=== PATIENT | female | born 1965 ===

== ENCOUNTER 2018-08-18 00:30 | Emergency (ER) | payer SELFPAY ==
[2018-08-18 00:37] VITALS: BP 152/102
== END 2018-08-18 02:49 | disposition left against medical advice (07) ==
LOC: ED 00:30
DX: I10 Essential (primary) hypertension (principal); Z53.21 Procedure and treatment not carried out due to patient leaving prior to being seen by health care provider

== ENCOUNTER 2018-08-18 11:56 | Emergency (ER) | payer SELFPAY ==
--- NOTE | 2018-08-18 12:23 | ED ---
HPI Diabetic - HPI Summary HPI Summary: Patient was first seen in sub waiting room at 12:11 when EKG and labs were initiated. This patient is a 53 year old F presenting to [facility] accompanied by daughter with a chief complaint of high blood sugar since the night of 08/17/18. Pt has no history of diabetes. When measured at home last night, her blood sugar level was 419. Pt came to [facility] last night but left without being seen after waiting 2 -3 hours. Pts sister is an ED doctor in [place], Dr. Bee Mccall, who strongly recommended pt come back to the ED after hearing her blood sugar levels. Pt reports she has generally been pretty healthy, but reports that she hasnt been feeling well since 08/15/18, which worsened on 08/17/18 and she was extremely exhausted, and could not get out of bed. That was when she checked her blood sugar levels, and she has been checking her blood sugar every 4 hours since then. The lowest reading she had was 307 and the last reading she had was 370. Her blood pressure was also varying. The lowest systolic was 98 and highest was about 150. Pt reports her tongue is numb, and left side of jaw is numb from this morning when she woke up and is still present, an intermittent cough for the past 3-4 days, nausea, DAS, normal consumption of water, and losing a lot of weight over the past 3-4 months (without trying to lose weight) . Pt reports she lost 20 lbs, daughter reports pt lost 50-60 lbs. Pt reports discomforts/pressure in chest described as sinking, and rates the pain 6-7/ 10. Pt denies fever, vomiting, abdominal pain, dysuria, hematuria, no pain in calf. This is the pt first experience of chest pressure, first high blood sugar , first high blood pressure. Pt has no FHx of diabetes, PR, both parents alive and well. Pt does not smoke or drink alcohol. Pt takes no medications at home. Pt has no primary care physician. Home Medications Medication Instructions Recorded Confirmed Type NK [No Home Medications Reported] 08/18/18 08/18/18 History - History Of Current Complaint Chief Complaint: EDDiabeticProb Hx Obtained From: Patient, Family/Station Jailer - daughter Last Known Well Date: 08/14/18 Onset/Duration: Gradual Onset, Lasting Days - 08/15/18, Still Present Timing: Constant Severity Initially: Severe Severity Currently: Severe Character: Lethargic Aggravating: Nothing, Other Alleviating: Nothing Associated Signs & Symptoms: Cough, Nausea, Weight Loss - generalized fatigue Related History: Other - no prior hx of DM - Allergies/Home Medications Allergies/Adverse Reactions: Allergies Allergy/AdvReac Type Severity Reaction Status Date / Time Penicillins Allergy Unknown Verified 08/18/18 12:04 Reaction Details Sulfa (Sulfonamide Allergy Unknown Verified 08/18/18 12:04 Antibiotics) Reaction Details PMH/Surg Hx/FS Hx/Imm Hx Previously Healthy: Yes Endocrine/Hematology History: Denies: Hx Diabetes Cardiovascular History: Denies: Hx Hypertension - Surgical History Surgical History: None Infectious Disease History: No Infectious Disease History: Denies: Traveled Outside the [place] in Last 30 Days - Family History Known Family History: Negative: Cardiac Disease, Diabetes - Social History Lives: With Family Alcohol Use: None Hx Substance Use: No Substance Use Type: Reports: None Hx Tobacco Use: No Smoking Status (MU): Never Smoked Tobacco Do You Chew or Dip Tobacco: No Have You Chewed or Dipped Tobacco in the LAST YEAR: No Have You Smoked in the Last Year: No Review of Systems Positive: Other - Pos - weight loss, unintended 20-50lbs . Negative: Fever Positive: Other - Pos - numb tongue, left side is jaw is numb Positive: Chest Pain Positive: Cough Positive: Nausea. Negative: Abdominal Pain, Vomiting Negative: dysuria, hematuria Positive: Other - Neg - pain in calf Skin: Negative Positive: Headache Psychological: Normal All Other Systems Reviewed And Are Negative: Yes Physical Exam - Summary Physical Exam Summary: Normal Physical Exam Appearance: Ill-appearing, no acute pain distress, well-nourished Skin: Warm, color reflects adequate perfusion, dry Head: Normal Head/Face inspection, atraumatic Eyes: Conjunctiva clear ENT: Normal inspection, oral mucosa moist, tongue and jaw with normal appearance Neck: Supple, no nodes, no JVD Respiratory: Lungs clear, normal breath sounds, no respiratory distress Cardio: RRR, No murmur, pulses normal, brisk capillary refill, Mild chest pain Abdomen: Soft, nontender Bowel sounds: Present Musculoskeletal: Strength Intact/ROM intact, no calf tenderness, no edema. Psychological: Normal Neuro: Alert, O x 3, CN II-XII intact, Motor 5/5, Sensation intact, normal gait , muscle tone normal, no focal deficit Triage Information Reviewed: Yes Vital Signs On Initial Exam: Initial Vitals Temp Pulse Resp BP Pulse Ox 98.1 F 87 18 139/98 98 08/18/18 11:59 08/18/18 11:59 08/18/18 11:59 08/18/18 11:59 08/18/18 11:59 Vital Signs Reviewed: Yes Diagnostics - Vital Signs Vital Signs Temp Pulse Resp BP Pulse Ox 08/18/18 11:59 98.1 F 87 18 139/98 98 - Laboratory Result Diagrams: 08/18/18 13:27 08/18/18 13:27 Lab Statement: Any lab studies that have been ordered have been reviewed, and results considered in the medical decision making process. - Radiology CXR Radiology Interpretation Completed By: Radiologist Summary of Radiographic Findings: CXR reveals, per radiologist, IMPRESSION: NO ACTIVE CARDIOPULMONARY DISEASE. ED physician has reviewed this radiology report. - EKG 1206 Cardiac Rate: NL - 76 bpm EKG Rhythm: Sinus Rhythm ST Segment: Non-Specific Ectopy: None EKG Comparison: Other - no prior to compare Summary of EKG Findings: An EKG at 1206 reveals nml sinus rhythm 76, AV/IV CT, nml QTc, and nml axis. No acute changes.No STEMI, no prior to compare. ED MD has reviewed and interpreted this EKG. Re-Evaluation - Re-Evaluation First Eval Re-Evaluation Time: 15:57 Comment: Vital signs while in room: HR 93 bpm, BP 112/79, O2 sat 100%. Pt c/o. palpitations on the recheck but on the monitor it shows sinus rythm 93. Discussed plan to discharge. Pt looks well, improved from admission to ED. Talked to pt's sister, ER doctor in [place] who agrees with evaluation and treatment plan for new onset DM. Sister did not realize pt had had chest pressure also, but agrees with DC after 2 negative troponins and low HEART score (2) and LOLI score (1-for DM). Pt denies chest pain or numbness of tongue and jaw at this time. Repeat glucose 1.5 hrs after regular insulin IV 10 units and 2L NS is 202. Pt feels well. Daughter and pt advised to call [facility] clinic to be seen on this Tuesday, August 21, 2018. Diabetic Course/Dx - Course Course Of Treatment: CXR reveals, per radiologist, IMPRESSION: NO ACTIVE CARDIOPULMONARY DISEASE. An EKG at 1206 reveals nml sinus rhythm 76, AV/IV CT, nml QTc, and nml axis. No acute changes.No STEMI, no prior to compare. Blood work obtained. The significant abnormalities include Glucose 389 at 1327 with blood draw, (POC Glucose is 346 at 12:54 at triage), POC glucose at 1426 is 381 , POC glucose at 1614 is 202 after 10 U reg insulin and 2L NS. Hemoglobin A1c is 14.3. Anion gap is 7, lactic acid is 1.0. Venous blood gas shows normal pH, 7.32. So pt is new onset DM type II, with no ketoacidosis. Pt had 2 troponins of zero, three hours apart, and a normal EKG with no prior to compare. CXR was no acute cardiopulmonary disease. Her HEART score is 2, and her LOLI score is 1. Pt is pain free and glucose is 202 by POC at time of discharge. Pt and her daughter and pt's ED MD sister are all agreeable to discharge. Pt will start metformin and have definite follow up with the [facility] clinic in 3 days. Daughter is given information about contacting the billing department and social and political studies professor at the hospital to help with insurance, as pt states she has no insurance. - Diagnoses Differential Dx: Acute PR, Diabetic Ketoacidosis, Hyperglycemia, Hyperosmolar State, New Onset Diabetes, Sepsis Provider Diagnoses: New onset type 2 diabetes mellitus, Chest pain, Unintended weight loss Discharge - Sign-Out/Discharge Documenting (check all that apply): Patient Departure - Discharge Patient Received Moderate/Deep Sedation with Procedure: No - Discharge Plan Condition: Stable Disposition: HOME Prescriptions: metFORMIN* [Glucophage 1000 MG TAB *] 1,000 mg PO BID #60 tab Patient Education Materials: Type 2 Diabetes in Adults: New Diagnosis (ED) Referrals: [facility] [Outside] - As Soon As Possible Additional Instructions: [facility] tomorrow to arrange to be seen on Friday2018. Start Metformin 1000mg daily for 3-7 days until your stomach is used to the medication. Then start Metformin 1000mg twice a day. We have given a copy of your CXR and labs today. Talk to the [facility] clinic about helping you get some insurance. You were given 10 Units of Regular insulin while your were in the ER. Your glucose 1.5 hours after this was 202. Please return to the ER if you have any new or worsening symptoms. - Billing Disposition and Condition Condition: STABLE Disposition: Home - Attestation Statements Document Initiated by Eliana: Yes Documenting Scribe: Sehlby Barragan Provider For Whom Eliana is Documenting (Include Credential): Dr. Melanie Gibson MD Scribe Attestation: Shelby Brown scribed for Dr. Melanie Gibson MD on 08/19/18 at 1353. Scribe Documentation Reviewed: Yes Provider Attestation: The documentation as recorded by the Shelby little accurately reflects the service I personally performed and the decisions made by , Dr. Melanie Gibson MD Status of Scribe Document: Viewed
[2018-08-18] MEDS ORDERED: Insulin REGULAR(*) 1 UNITS UNIT IV ONE (12:30)
[2018-08-18] MEDS ORDERED: NS 0.9% 1000 ML** 2,000 ML IV ONE (12:30)
[2018-08-18 13:45] LABS: ABS Eosinophils 0.1 10^3/ul (0-0.6); ABS Lymphocytes 1.3 10^3/ul (1.0-4.8); ABS Monocytes 0.3 10^3/ul (0-0.8); ABS Neutrophils 4.5 10^3/ul (1.5-7.7); Eosinophil % 1.2 %; Hematocrit 45 % (35-47); Hemoglobin 15.2 g/dL (12.0-16.0); Lymphocyte % 20.8 %; Mean Corpuscular HGB Conc 34 g/dL (31-36); Mean Corpuscular Hemoglobin 28 pg (27-31); Mean Corpuscular Volume 83 fL (80-97); Mean Platelet Volume 7.2 fL (7.4-10.4); Platelet Count 299 10^3/uL (150-450); Red Blood Count 5.37 10^6 /uL (3.70-4.87); Red Cell Distribution Width 13 % (10-15); White Blood Count 6.2 10^3/uL (3.5-10.8)
[2018-08-18 14:03] LABS: Albumin 4.2 g/dL (3.2-5.2); Albumin/Globulin Ratio 1.3 (1-3); BUN/Creatinine Ratio 11.3 (8-20); Calcium 9.7 mg/dL (8.6-10.3); EGFR African American 120.9 (>60); EGFR Non-African American 99.9 (>60); Globulin 3.2 g/dL (2-4); Magnesium 2.1 mg/dL (1.9-2.7); Potassium 4.1 mmol/L (3.5-5.0); Total Bilirubin 0.8 mg/dL (0.2-1.0); Total Protein 7.4 g/dL (6.4-8.9)
[2018-08-18 14:05] LABS: Activated Partial Thrombo Time 33.6 seconds (26.0-38.0); INR 0.97 (0.82-1.09)
[2018-08-18 14:09] LABS: CKMB ng/mL 1.4 ng/mL (0.6-6.3)
[2018-08-18 15:27] LABS: T4, Total 8.7 mcg/dL (6.09-12.23)
[2018-08-18 15:28] VITALS: BP 112/79
[2018-08-18 15:31] LABS: TSH (Thyroid Stimulating Horm) 0.78 mcIU/mL (0.34-5.60)
== END 2018-08-18 16:31 | disposition home or self-care (01) ==
LOC: ED 11:56
DX: E11.9 Type 2 diabetes mellitus without complications (principal); R07.9 Chest pain, unspecified; R63.4 Abnormal weight loss; Z88.0 Allergy status to penicillin; Z88.2 Allergy status to sulfonamides
CPT/HCPCS: 36415; 71046; 80053; 82550; 82553; 82803; 83036; 83605; 83735; 84436; 84443; 84484; 85025; 85610; 85730; 93005; 96374; 99283

== ENCOUNTER 2018-09-28 22:51 | Inpatient (IN) | payer SELFPAY ==
[2018-09-28] MEDS ORDERED: Morphine 4 MG/ML VIAL (1 ml) 4 MG/ML VIAL IV ONE (23:34)
[2018-09-28] MEDS ORDERED: NS 0.9% 1000 ML** 1,000 ML IV ONE (23:34)
[2018-09-28] MEDS ORDERED: Metoclopramide IV* 5 MG/ML 2 ML VIAL IV SLOW PU ONE (23:34)
--- NOTE | 2018-09-28 23:37 | ED ---
Neurological HPI - HPI Summary HPI Summary: This pt is a 53 Y/O F presenting to [facility] with her daughter and a CC of L sided weakness that started at 1800 today and has progressively gotten worse. The pt stated that it started with a severe headache and then the L side of her body became numb and weak. Her daughter stated that her mother was walking around normally when the onset happened. She stated that her jaw, face, and her tongue is also numb. She stated being nauseas at the onset. She stated that the headache was primarily on her L side. The pain was rated a 10/10 in severity. She stated that she was having issues walking and stated that she felt as if her L foot was dragging. PROJ MGR the pt reported taking 2 baby aspirin. She denies any CP, abdominal pain, fevers, chills, and vomiting. She stated no aggravating or alleviating symptoms. She was recently diagnosed with diabetes and started metformin. - History of Current Complaint Chief Complaint: EDWeakness Stated Complaint: NUMBNESS ON LEFT SIDE/CHEST PAIN PER PT Hx Obtained From: Patient Onset/Duration: Sudden Onset - 1800, Started hours ago - 3, Still Present Timing: Constant Onset Severity: Severe Current Severity: Moderate Pain Intensity: 10 Pain Scale Used: 0-10 Numeric Aggravating: Nothing Alleviating: OTC Meds - 2 baby ASA for pain Associated Signs and Symptoms: Positive: Negative - CP, abdominal pain, fevers, chills, and vomiting., Headache - 10/10, Weakness - L sided, Numbness - L hand, Nausea/Vomiting - Nausea at onset and still present, no vomiting. Negative: Fever, Chest Pain TPA Considered: No - Onset was at 1800. - Allergy/Home Medications Allergies/Adverse Reactions: Allergies Allergy/AdvReac Type Severity Reaction Status Date / Time Penicillins Allergy Unknown Verified 09/28/18 23:02 Reaction Details Sulfa (Sulfonamide Allergy Unknown Verified 09/28/18 23:02 Antibiotics) Reaction Details PMH/Surg Hx/FS Hx/Imm Hx Previously Healthy: Yes Endocrine/Hematology History: Reports: Hx Diabetes - type 2 Cardiovascular History: Denies: Hx Hypertension - Surgical History Surgical History: None Infectious Disease History: No Infectious Disease History: Denies: Traveled Outside the [place] in Last 30 Days - Family History Known Family History: Negative: Cardiac Disease, Diabetes - Social History Occupation: Unemployed Lives: With Family Alcohol Use: None Hx Substance Use: No Substance Use Type: Reports: None Hx Tobacco Use: No Smoking Status (MU): Never Smoked Tobacco Have You Smoked in the Last Year: No Review of Systems Negative: Fever, Chills Negative: Chest Pain Positive: Nausea. Negative: Abdominal Pain, Vomiting Positive: Headache, Weakness - L sided weakness, Numbness - L hand All Other Systems Reviewed And Are Negative: Yes Physical Exam - Summary Physical Exam Summary: VITAL SIGNS: Reviewed. GENERAL: Patient is a well-developed and nourished Female who is lying comfortable in the stretcher. Patient is not in any acute respiratory distress. HEAD AND FACE: No signs of trauma. No ecchymosis, hematomas or skull depressions. No sinus tenderness. EYES: PERRLA, EOMI x 2, No injected conjunctiva, no nystagmus. EARS: Hearing grossly intact. Ear canals and tympanic membranes are within normal limits. MOUTH: Oropharynx within normal limits. NECK: Supple, trachea is midline, no adenopathy, no JVD, no carotid bruit, no c- spine tenderness, neck with full ROM CHEST: Symmetric, no tenderness at palpation LUNGS: Clear to auscultation bilaterally. No wheezing or crackles. CVS: Regular rate and rhythm, S1 and S2 present, no murmurs or gallops appreciated. ABDOMEN: Soft, non-tender. No signs of distention. No rebound no guarding, and no masses palpated. Bowel sounds are normal. EXTREMITIES: FROM in all major joints, no edema, no cyanosis or clubbing. NEURO: Alert and oriented x 3. Subtle L upper extremity drift, Speech is normal and follows commands. SKIN: Dry and warm Triage Information Reviewed: Yes Vital Signs On Initial Exam: Initial Vitals Temp Pulse Resp BP Pulse Ox 98.4 F 97 16 135/92 99 09/28/18 22:59 09/28/18 22:59 09/28/18 22:59 09/28/18 22:59 09/28/18 22:59 Vital Signs Reviewed: Yes Diagnostics - Vital Signs Vital Signs Temp Pulse Resp BP Pulse Ox 09/28/18 22:59 98.4 F 97 16 135/92 99 - Laboratory Result Diagrams: 09/28/18 23:20 09/28/18 23:20 Lab Statement: Any lab studies that have been ordered have been reviewed, and results considered in the medical decision making process. - CT brain CT CT Interpretation Completed By: Radiologist Summary of CT Findings: No acute intracranial abnormality. ED physician has reviewed this report. Head CTA CT Interpretation Completed By: Radiologist Summary of CT Findings: No significant stenosis. ED Physician has reviewed this report. - EKG 0004 Cardiac Rate: NL - 82 BPM EKG Rhythm: Sinus Rhythm ST Segment: Normal Ectopy: None Summary of EKG Findings: NSR at 82 BPM with Normal axis. Normal interval. No ischemic changes. Interpreted by Dr. Whipple at 0012 09/29/18. NIH Scale - NIH Scale Level of Consciousness: Alert/Keenly Responsive Ask Patient the Month and His/Her Age: Both Correct Ask Pt to Open/Close Eyes and Nutrition Services Manager/Release Non-Paretic Hand: Both Correctly Best Gaze (Only Horizontal Eye Movement): Normal Visual Field Testing: No Visual Loss Facial Paresis-Pt to Smile & Close Eyes or Grimace Symmetry: Minor Paralysis Motor Function - Right Arm: No Drift-Holds 10 Seconds Motor Function - Left Arm: Drifts LT 10 seconds Motor Function - Right Leg: No Drift-Holds 10 Seconds Motor Function - Left Leg: Drifts LT 10 seconds Limb Ataxia-Must be out of Proportion to Weakness Present: Absent Sensory (Use Pinprick to Test Arms/Legs/Trunk/Face): Normal Best Language (Describe Picture, Name Items): No Aphasia - patient was able to ambulate in the emergency room without apparent weakness. Dysarthria (Read Several Words): Normal Extinction and Inattention: No Abnormality Total Score: 3 Course/Dx - Course Course Of Treatment: This pt is a 53 Y/O F presenting to [facility] with her daughter and a CC of L sided weakness that started at 1800 today and has progressively gotten worse. The pt stated that it started with a severe headache and then the L side of her body became numb and weak. She stated that her jaw, face, and her tongue is also numb. She was able to ambulate. A code streeter was called immediately following her PE which showed sublte L upper extremity weakness, at 2333 and the pt was taken to have a brain and head CT immediately. TPA was not considered as the onset was at 1800. Her brain CT showed the following: No acute intracranial abnormality. Her EKG at 0004 shows the following: NSR at 82 BPM with Normal axis. Normal interval. No ischemic changes. Her Head CTA showed the following: No significant stenosis. Dr. Stover, neurology at [place], stated that no further imaging was needed at this time and that the pt should be admitted to [facility] [place] [place] for further evaluations. Dr. Lopez, Hospitalist, 005 admitted the pt to [facility] [place] [place] for further evaluation. - Diagnoses Provider Diagnoses: CVA (cerebral vascular accident) - Physician Notifications Discussed Care Of Patient With: Coleman Lopez Time Discussed With Above Provider: 00:57 Instructed by Provider To: Admit As Inpatient Discharge - Sign-Out/Discharge Documenting (check all that apply): Patient Departure - admitted Patient Received Moderate/Deep Sedation with Procedure: No - Discharge Plan Condition: Stable Disposition: ADMITTED TO [facility] - Billing Disposition and Condition Condition: STABLE Disposition: Admitted to [facility] - Attestation Statements Document Initiated by Eliana: Yes Documenting Scribe: Byron Maher Provider For Whom Scribe is Documenting (Include Credential): Bucky Wright MD Scribe Attestation: IByron, scribed for Bucky Wright MD on 09/29/18 at 0631. Scribe Documentation Reviewed: Yes Provider Attestation: The documentation as recorded by the Byron little accurately reflects the service I personally performed and the decisions made by Ashely graham MD Status of Scribe Document: Viewed Consult Consult: Dr. Stover, neurology at [place], 0050, stated that no further imaging was needed at this time and that the pt should be admitted to [facility] [place] [place] for further evaluations. Dr. Lopez, Hospitalist, 005 admitted the pt to [facility] [place] [place] for further evaluation.
[2018-09-28 23:42] LABS: ABS Basophils 0.1 10^3/ul (0-0.2); ABS Eosinophils 0.1 10^3/ul (0-0.6); ABS Lymphocytes 2.4 10^3/ul (1.0-4.8); ABS Monocytes 0.6 10^3/ul (0-0.8); ABS Neutrophils 4.4 10^3/ul (1.5-7.7); Eosinophil % 1.9 %; Hematocrit 44 % (35-47); Hemoglobin 14.8 g/dL (12.0-16.0); Lymphocyte % 31.9 %; Mean Corpuscular HGB Conc 34 g/dL (31-36); Mean Corpuscular Hemoglobin 28 pg (27-31); Mean Corpuscular Volume 83 fL (80-97); Mean Platelet Volume 6.8 fL (7.4-10.4); Platelet Count 341 10^3/uL (150-450); Red Blood Count 5.24 10^6 /uL (3.70-4.87); Red Cell Distribution Width 13 % (10-15); White Blood Count 7.5 10^3/uL (3.5-10.8)
[2018-09-28] MEDS ORDERED: Iodixanol* (CONTRAST) 320 MG/ML 100 ML SDV IV ONE (23:42)
[2018-09-29 00:01] LABS: Albumin 4.4 g/dL (3.2-5.2); Albumin/Globulin Ratio 1.4 (1-3); BUN/Creatinine Ratio 9.8 (8-20); Calcium 9.6 mg/dL (8.6-10.3); EGFR African American 87.6 (>60); EGFR Non-African American 72.4 (>60); Globulin 3.1 g/dL (2-4); HDL Cholesterol 40.4 mg/dL; Potassium 3.8 mmol/L (3.5-5.0); Total Bilirubin 0.5 mg/dL (0.2-1.0); Total Protein 7.5 g/dL (6.4-8.9)
[2018-09-29] MEDS ORDERED: Aspirin TAB* 325 MG PO ONE (00:30)
[2018-09-29 00:39] LABS: Urine Appearance Clear; Urine Bilirubin Negative (Negative); Urine Blood Negative (Negative); Urine Color Straw; Urine Glucose Negative (Negative); Urine Ketones Negative (Negative); Urine Nitrite Negative (Negative); Urine Protein Negative (Negative); Urine Specific Gravity 1.005 (1.010-1.030); Urine Urobilinogen Negative (Negative)
[2018-09-29] MEDS ORDERED: Aspirin 81 mg CHEW TAB* 81 MG TAB.CHEW PO ONE (00:52)
[2018-09-29] MEDS: Ondansetron INJ* 2 MG/ML VIAL IV PRN (05:47)
[2018-09-29] MEDS ORDERED: Dextrose 50% VIAL 50 ml IV PUSH PRN (08:08)
[2018-09-29] MEDS ORDERED: Acetaminophen TAB* 325 MG PO PRN (08:08)
--- NOTE | 2018-09-29 08:25 | PN ---
Subjective Date of Service: 09/29/18 Interval History: Pt is feeling about the same. She continues to have headache though it is less severe. She still feels numbness in the L face/tongue. She continues to feel weakness of the L arm/leg. Objective Active Medications: Acetaminophen (Tylenol Tab*) 650 mg PO Q4H PRN PRN Reason: PAIN - MILD Aspirin (Ecotrin Ec Tab*) 325 mg PO DAILY [place] Atorvastatin Calcium (Lipitor*) 20 mg PO 2100 [place] Dextrose (Dextrose 50% Vial 50 Ml*) 25 ml IV PUSH .FOR FS < 60 - SS PRN PRN Reason: FS < 60 Insulin Human Lispro (Humalog*) 0 units SUBCUT ACHS [place]; Protocol Ondansetron HCl (Zofran Inj*) 4 mg IV Q6H PRN PRN Reason: NAUSEA Last Admin: 09/29/18 05:47 Dose: 4 mg Vital Signs - 8 hr 09/29/18 09/29/18 09/29/18 00:20 00:31 01:00 Temperature Pulse Rate 89 Respiratory 18 12 16 Rate Blood Pressure 118/81 (mmHg) O2 Sat by Pulse 95 Oximetry 09/29/18 09/29/18 09/29/18 01:01 01:31 02:00 Temperature Pulse Rate 76 Respiratory 16 14 12 Rate Blood Pressure 126/85 114/79 (mmHg) O2 Sat by Pulse 97 Oximetry 09/29/18 09/29/18 09/29/18 02:01 02:31 03:00 Temperature Pulse Rate 73 78 81 Respiratory 10 11 13 Rate Blood Pressure 113/76 105/72 (mmHg) O2 Sat by Pulse 97 97 96 Oximetry 09/29/18 09/29/18 09/29/18 03:01 03:31 04:00 Temperature Pulse Rate 79 79 93 Respiratory 14 12 20 Rate Blood Pressure 107/72 107/80 (mmHg) O2 Sat by Pulse 97 97 97 Oximetry 09/29/18 09/29/18 09/29/18 04:01 04:31 05:00 Temperature Pulse Rate 86 84 77 Respiratory 19 12 13 Rate Blood Pressure 112/76 114/77 (mmHg) O2 Sat by Pulse 98 98 97 Oximetry 09/29/18 09/29/18 09/29/18 05:07 05:10 05:24 Temperature 98.0 F 98.5 F Pulse Rate 81 103 104 Respiratory 14 14 14 Rate Blood Pressure 114/77 154/97 154/97 (mmHg) O2 Sat by Pulse 100 99 99 Oximetry 09/29/18 09/29/18 09/29/18 05:26 05:34 06:00 Temperature Pulse Rate 98 102 81 Respiratory 18 25 14 Rate Blood Pressure 144/84 151/94 125/74 (mmHg) O2 Sat by Pulse 99 96 98 Oximetry 09/29/18 09/29/18 07:00 08:00 Temperature Pulse Rate 70 80 Respiratory 10 11 Rate Blood Pressure 93/73 (mmHg) O2 Sat by Pulse 96 96 Oximetry Oxygen Devices in Use Now: None Appearance: Middle aged female lying in bed, NAD Eyes: No Scleral Icterus Ears/Nose/Mouth/Throat: Mucous Membranes Moist Respiratory: Symmetrical Chest Expansion and Respiratory Effort, Clear to Auscultation Cardiovascular: NL Sounds; No Murmurs; No JVD, RRR, No Edema Abdominal: NL Sounds; No Tenderness; No Distention Extremities: No Clubbing, Cyanosis Skin: No Nodules or Sclerosis Neurological: Alert and Oriented x 3, - - ? functional L arm/leg weakness Result Diagrams: 09/28/18 23:20 09/28/18 23:20 Microbiology and Other Data: Microbiology 09/29/18 05:30 Nasal Screen MRSA (PCR) - Final Nasal Mrsa Not Detected Assess/Plan/Problems-Billing Ms Hamilton is a 53 yo F who has a h/o type II DM (recently diagnosed) who presented to the ER with c/o severe headache and left sided numbness and weakness involving the face/arm/leg. - Patient Problems (1) Left-sided weakness Current Visit: Yes Status: Acute Code(s): R53.1 - WEAKNESS SNOMED Code(s) : 468740865 Comment: Unclear cause. Complex migraine is possible but she has no h/o migraines and at her age it would be unusual for her to develop a complex migraine now. CVA is possible but her exam seems functional (she is able to give full effort intermittently). Will get MRI brain to r/o CVA and because of the new DAS. Neurology consult requested. (2) Type II diabetes mellitus Current Visit: Yes Status: Acute Comment: Hold metformin due to IV contrasted CT scan last night. Start lispro sliding scale. (3) DVT prophylaxis Current Visit: Yes Status: Acute Code(s): Z29.9 - ENCOUNTER FOR PROPHYLACTIC MEASURES, UNSPECIFIED SNOMED Code(s): 200043780 Comment: start lovenox this evening (4) Full code status Current Visit: Yes Status: Acute Code(s): Z78.9 - OTHER SPECIFIED HEALTH STATUS SNOMED Code(s): 018669432
--- NOTE | 2018-09-29 08:36 | HP ---
ADMISSION HISTORY AND PHYSICAL: DATE OF ADMISSION: 09/29/18 CHIEF COMPLAINT: Left-sided weakness. HISTORY OF PRESENT ILLNESS: This is a 53-year-old female with past medical history of a newly diagnosed diabetes from a few days ago, who came in due to left-sided weakness. The patient stated that she was in her usual state of health up until 6 p.m. today when she started having left-sided weakness both upper and lower extremities. She also noticed a numbness and weakness. The numbness was present in her jaw, face, tongue, was also feeling numb and she had severe headache primarily on the left side as well and onset of nausea with the headache. She was also having some chest pain, which was rated at 10/10 along with a 10/10 headache. She was noted to be having difficulty walking. She stated that her left foot was feeling like it was dragging. So, she finally took 2 baby aspirin and after talking to her sister who is an emergency doctor, she finally decided to come to the ER for further evaluation. The patient otherwise denies any other abdominal pain, fever, chills. She did have feeling nausea, but no vomiting. No other aggravating or alleviating factors. PAST MEDICAL HISTORY: As mentioned, newly diagnosed diabetes, was started on metformin recently, but otherwise negative. PAST SURGICAL HISTORY: None. HOME MEDICATIONS: Currently only taking metformin twice a day. ALLERGIES: The patient is documented to have allergies to PENICILLIN and SULFA antibiotics. FAMILY HISTORY: Mother is alive at age 85 and father in his 90s. Both of them are otherwise healthy without any medical problems. SOCIAL HISTORY: The patient denies any smoking, alcohol, or drug abuse and she came into [place] to live with her daughter who is currently studying at a [employer] She is otherwise full code. REVIEW OF SYSTEMS: A 14-point review of systems was negative other than the ones stated in HPI. PHYSICAL EXAMINATION GENERAL: The patient is awake, alert, oriented x3, did not appear to be in any acute respiratory distress. VITAL SIGNS: In the ER, BP was 113/76, heart rate 73, respiration rate 10, saturating 97% on room air, temperature documented at 98.4. HEAD AND NECK: Atraumatic, normocephalic. Bilateral pupils were reactive. Oral mucosa was moist. Neck supple. No jugular venous distention. LUNGS: Clear to auscultation bilaterally. No wheezing, rhonchi, or rales. HEART: S1, S2. Regular rate and rhythm. ABDOMEN: Soft, nontender, nondistended. EXTREMITIES: No cyanosis, clubbing, or edema. NEUROLOGIC: The patient had full strength on all 4 extremities, even though she felt as if her left side was weaker. She did have a minimally decreased start up specialist strength on the left side on close examination, but otherwise rest of her cranial nerves were intact. Soft touch was intact on both extremities, but patient did notice that she was feeling that her sensation was a little bit more dull on the left side. DIAGNOSTIC STUDIES/LAB DATA: CBC was unremarkable. Coagulation profile shows INR of 1.0. Comprehensive metabolic panel was unremarkable except for a minimally elevated random glucose at 181. Urinalysis was negative for any leuk esterase or nitrite. CT brain showed no acute intracranial abnormality. CTA of the head showed no significant stenosis. The patient's case was discussed with Neurology at [place] by the ER physician, who suggested that the patient could be admitted here for further evaluation. IMPRESSION: This is a 53-year-old female with a newly diagnosed diabetes here due to left-sided numbness and weakness, rule out cerebrovascular accident. ASSESSMENT: 1. Cerebrovascular accident. We will start the patient on aspirin therapy. We will also start the patient on statin given her LDL on arrival was noted to be at 118. We will also check risk stratification of the patient with an A1c level and start the patient on insulin sliding scale for now and consider further treatment with metformin. Metformin currently is contraindicated given the patient did receive contrast dose for the CTA of the head. We will also further check on patient's echocardiogram, carotid Dopplers, and an MRI of the brain to rule out any acute vascular event. 2. History of diabetes. Start the patient on fingerstick monitoring and consider insulin sliding scale based on the fingerstick readings. 3. History of dyslipidemia with elevated LDL, on statin. 4. DVT prophylaxis with sequential compression device. [id number]/[facility] #: [id number] [facility]
[2018-09-29] MEDS ORDERED: Aspirin EC TAB* 325 MG PO SCH (09:00)
[2018-09-29] MEDS: Insulin LISPRO* 1 UNITS UNIT SUBCUT SCH ×3 (12:50→20:31)
--- NOTE | 2018-09-29 16:40 | ECHO ---
*[facility]* [place] [address] Fax #: [phone] Transthoracic Echocardiogram Patient: Trino Hamilton : 1965 Study Date: 09/29/2018 Age: 53 Gender: F HR: 85 bpm Height: 67 in /170.2 cm BSA: 1.84 m^2 Weight: 159.7 lb /72.6 kg BMI: 25.1 kg/m^2 *[place] Attendant: * Sabi Esparza RDCS RN *Referring Physician: * Coleman Lopez *Reading Physician: * Nura Akhtar MD Indications: CVA. History: Risk factors: Diabetes mellitus. Conclusions Summary: - Left ventricle: Systolic function is normal. The estimated ejection fraction is 55-60%. Wall motion is normal; there are no regional wall motion abnormalities. - Right ventricle: Systolic function is normal. - Atrial septum: No defect or patent foramen ovale is identified. - Mitral valve: There is trace to mild regurgitation. - Aortic valve: There is no regurgitation. - Tricuspid valve: There is trace to mild regurgitation. - Pulmonary arteries: Systolic pressure can not be accurately estimated. - Study data: No prior study is available for comparison. Study data: Transthoracic echocardiogram. Procedure: Transthoracic echocardiography was performed. Image quality was fair. Intravenous agitated saline was administered. A bubble study was performed. Images 12 and 13. Complete 2D, spectral Doppler, and color flow Doppler. Location: Bedside. Patient status: Inpatient. Patient room number: ICU 2. No prior study is available for comparison. Rhythm: Normal sinus rhythm. Findings Left ventricle: The cavity size is normal. Wall thickness is normal. Systolic function is normal. The estimated ejection fraction is 55-60%. Wall motion is normal; there are no regional wall motion abnormalities. Left ventricular diastolic function parameters are normal. Right ventricle: The cavity size is normal. Systolic function is normal. Left atrium: The atrium is normal in size. Right atrium: The atrium is normal in size. Atrial septum: No defect or patent foramen ovale is identified. Bubble study was negative Mitral valve: The leaflets are mildly thickened. There is no evidence of stenosis. There is trace to mild regurgitation. Aortic valve: Not well visualized. The leaflets are mildly thickened. There is no evidence of stenosis. There is no regurgitation. Tricuspid valve: The valve is structurally normal. There is no evidence of stenosis. There is trace to mild regurgitation. Pulmonic valve: Not well visualized. Aorta: Aortic root: The aortic root is not dilated. Ascending aorta: The ascending aorta is not dilated. Aortic arch: The aortic arch is not dilated. Pericardium: There is no pericardial effusion. Pulmonary arteries: Not well visualized. Systolic pressure can not be accurately estimated. Systemic veins: Inferior vena cava: The vessel is normal in size. There is (>= 50%) respiratory change in the IVC dimension. Measurements Left ventricle Value Ref Right atrium continued Value Ref TOBIAS, LAX (L) 3.6 cm 3.8 - SI dim, ES, A4C 4.2 cm 3.4 - 5.3 5.2 Estimated RAP 3 mm Hg --------- ESD, LAX 2.2 cm 2.2 - 3.5 Aortic valve Value Ref FS, LAX 39 % 27 - 45 Miriam diam, ED 1.9 cm --------- PW, ED 0.8 cm 0.6 - Peak v, S 1.4 m/sec --------- 0.9 VTI, S 29.8 cm --------- IVS/PW, ED 0.98 -------- Mean grad, S 4.0 mm Hg --------- E', lat miriam, TDI 11.1 cm/sec >=10.0 Peak grad, S 8.0 mm Hg -- ------- E/e', lat miriam, TDI 8 -------- LVOT/AV, VTI ratio 0.74 ----- ---- E', med miriam, TDI 7.5 cm/sec >=7.0 E/e', med miriam, TDI 11 -------- Mitral valve Value Ref E', avg, TDI 9.3 cm/sec -------- Peak E 0.83 m/sec ----- ---- E/e', avg, TDI 9 <=14 Peak A 0.71 m/sec -- ------- Decel time 148 ms --------- LVOT Value Ref Peak grad, D 2.8 mm Hg --------- Peak melodie, S 1.13 m/sec -------- Peak E/A ratio 1.2 --------- VTI, S 22.1 cm -------- Peak grad, S 5 mm Hg -------- Aortic root Value Ref Mean grad, S 3 mm Hg -------- Root diam 2.9 cm <4.0 Ventricular septum Value Ref Ascending aorta Value Ref IVS, ED 0.8 cm 0.6 - AAo AP diam, S 2.9 cm --------- 0.9 Aortic arch Value Ref Right ventricle Value Ref Arch diam 2.9 cm --------- TOBIAS minor ax, A4C 2.6 cm 1.9 - mid 3.5 Decending aorta Value Ref Rosalba peak melodie 0.84 m/sec --------- Left atrium Value Ref ML dim, A4C 3.0 cm -------- Inferior vena cava Value Ref SI dim, A4C 4.1 cm -------- Diam 1.6 cm --------- Vol/bsa, ES, 1-p 11 ml/m^2 11 - 40 A4C Vol/bsa, ES, A/L (L) 15 ml/m^2 16 - 34 Right atrium Value Ref ML dim, ES, A4C 2.8 cm 2.6 - 4.4 Legend: (L) and (H) tali values outside specified reference range. Prepared and electronically signed by Nura Akhtar MD 09/29/2018 16:39
[2018-09-29] MEDS ORDERED: Clopidogrel TAB* 75 MG PO ONE (17:34)
[2018-09-29] MEDS ORDERED: Ketorolac TAB * 10 MG TAB PO PRN (20:08)
[2018-09-29] MEDS: Enoxaparin(*) 40 MG/0.4 ML SYR SUBCUT SCH (20:30)
[2018-09-29] MEDS: Atorvastatin* 40 MG TAB PO SCH (20:30)
[2018-09-29] MEDS: Ketorolac INJ* 15 MG/ML 1 ML VIAL IV PUSH PRN (20:32)
[2018-09-29] MEDS ORDERED: Atorvastatin* 20 MG TAB PO SCH (21:00)
--- NOTE | 2018-09-29 22:08 | CONS ---
CONSULTATION REPORT: DATE OF CONSULT: 09/29/18 PATIENT OF: Dr. Martinez. HISTORY OF PRESENT ILLNESS: This is a 53-year-old woman who presented with left - sided numbness in her face, arm and leg. She says her foot felt slightly weak. She felt generally fatigued and she had some headache and nausea. She took 2 baby aspirin and came to the emergency room for further evaluation where she had a negative CT scan and negative CTA and was admitted. PAST MEDICAL HISTORY: Her past history is significant for being diagnosed with diabetes a few weeks ago after, according to her daughter, putting off symptoms for prolonged time. She is otherwise healthy, but does not have a doctor here. She lives with her daughter. Her sister is an ER doctor who has been advising her, but been telling her also to get a physician. PAST SURGICAL HISTORY: She has no surgical history. MEDICATIONS: She takes metformin twice a day. ALLERGIES: She is allergic to PENICILLIN and SULFA. FAMILY HISTORY: Her parents are both healthy in their 80s and 90s. SOCIAL HISTORY: She does not smoke, drink, or use drugs. REVIEW OF SYSTEMS: Negative in all 14 spheres other than she had some numbness in her left face and she presented with diabetes 3 weeks ago. PHYSICAL EXAM: Temperature 99.2, pulse 93, respiratory rate 16, blood pressure 128/91. She is alert and oriented with normal speech and comprehension. Cranial nerves II through XII were intact. Fundi were benign. Motor exam revealed normal tone, strength, coordination, and gait. Sensation is intact to position and grossly intact to light touch. Subjectively, she said her face, arm and leg felt slightly numb to touch. She had no extinction to double simultaneous stimulation. Reflexes were 1+ and equal, downgoing toes. Chest: Clear. Cardiovascular: Regular rate and rhythm. Abdomen is soft with positive bowel sounds. DIAGNOSTIC STUDIES/LAB DATA: Her MRI scan was reviewed and is normal. Her echo was normal including bubble study. Her labs included normal CBC, INR, PTT , elevated blood sugar, LDL was 118. Liver function tests were normal. IMPRESSION AND PLAN: I discussed with the patient and her ammunition specialist, her daughter that what she describing is primarily an acute onset of a hemisensory deficit. From a neurological point of view, this could be a small lacunar stroke in the internal capsule and it can be small enough that may not show up on MRI scan. This is a distinct possibility. There are risk factors including delaying diagnosis of her diabetes and an elevated cholesterol. It is possible within negative MRI scan that this could be just stress related, but it fits a neurological pattern, which does not need to have an abnormal MRI scan and therefore, the presumption is that this could be a small lacunar stroke that is in the process of resolving and she should be on aspirin and Plavix for a month , then going to just baby aspirin and her elevated cholesterol should be treated as outlined. Dr. Cardenas is carbon capture power plant engineer beginning this evening, I have signed the case out to him if there are further issues or questions. Thank you for sharing her case. [id number]/[facility] #: [id number] AMITA
[2018-09-30] MEDS: Ketorolac INJ* 15 MG/ML 1 ML VIAL IV PUSH PRN (04:49)
[2018-09-30] MEDS: Ondansetron INJ* 2 MG/ML VIAL IV PRN (04:54)
[2018-09-30] MEDS ORDERED: Ketorolac INJ* 15 MG/ML 1 ML VIAL IV PUSH PRN (05:17)
[2018-09-30 06:06] LABS: ABS Eosinophils 0.2 10^3/ul (0-0.6); ABS Lymphocytes 2.3 10^3/ul (1.0-4.8); ABS Monocytes 0.6 10^3/ul (0-0.8); ABS Neutrophils 3.6 10^3/ul (1.5-7.7); Eosinophil % 2.3 %; Hematocrit 41 % (35-47); Hemoglobin 14.3 g/dL (12.0-16.0); Lymphocyte % 34.3 %; Mean Corpuscular HGB Conc 35 g/dL (31-36); Mean Corpuscular Hemoglobin 29 pg (27-31); Mean Corpuscular Volume 83 fL (80-97); Mean Platelet Volume 6.9 fL (7.4-10.4); Nucleated Red Blood Cells % 0.1; Platelet Count 307 10^3/uL (150-450); Red Cell Distribution Width 13 % (10-15); White Blood Count 6.6 10^3/uL (3.5-10.8)
[2018-09-30 06:26] LABS: BUN/Creatinine Ratio 11.4 (8-20); Calcium 9.2 mg/dL (8.6-10.3); EGFR African American 91.4 (>60); EGFR Non-African American 75.6 (>60); Potassium 3.6 mmol/L (3.5-5.0)
[2018-09-30] MEDS: Insulin LISPRO* 1 UNITS UNIT SUBCUT SCH ×4 (09:32→21:25)
[2018-09-30] MEDS ORDERED: Meclizine TAB* 12.5 MG PO PRN (09:56)
--- NOTE | 2018-09-30 10:09 | PN ---
Subjective Date of Service: 09/30/18 Interval History: Pt is feeling worse today than previous. She states she is very dizzy every time she tries to get up. She feels her left leg is more weak today than it has been. Objective Active Medications: Acetaminophen (Tylenol Tab*) 650 mg PO Q4H PRN PRN Reason: PAIN - MILD Last Admin: 09/29/18 08:59 Dose: 650 mg Aspirin (Aspirin 81 Mg Chew Tab*) 81 mg PO DAILY [facility] Atorvastatin Calcium (Lipitor*) 40 mg PO 2100 [facility] Last Admin: 09/29/18 20:30 Dose: 40 mg Clopidogrel Bisulfate (Plavix Tab*) 75 mg PO DAILY [facility] Dextrose (Dextrose 50% Vial 50 Ml*) 25 ml IV PUSH .FOR FS < 60 - SS PRN PRN Reason: FS < 60 Enoxaparin Sodium (Lovenox(*)) 40 mg SUBCUT Q24H [facility] Last Admin: 09/29/18 20:30 Dose: 40 mg Insulin Human Lispro (Humalog*) 0 units SUBCUT [facility]; Protocol Last Admin: 09/30/18 09:32 Dose: Not Given Ketorolac Tromethamine (Toradol Inj*) 15 mg IV PUSH Q6H PRN PRN Reason: PAIN - MODERATE Meclizine HCl (Antivert Tab*) 25 mg PO Q8H PRN PRN Reason: DIZZINESS Ondansetron HCl (Zofran Inj*) 4 mg IV Q6H PRN PRN Reason: NAUSEA Last Admin: 09/30/18 04:54 Dose: 4 mg Vital Signs - 8 hr 09/30/18 09/30/18 09/30/18 03:00 03:47 04:00 Temperature 98.8 F Pulse Rate 77 84 Respiratory 9 Rate Blood Pressure 123/77 (mmHg) O2 Sat by Pulse 98 98 Oximetry 09/30/18 09/30/18 09/30/18 05:00 07:50 08:00 Temperature 99.5 F Pulse Rate 87 Respiratory 19 Rate Blood Pressure (mmHg) O2 Sat by Pulse 99 Oximetry Oxygen Devices in Use Now: None Appearance: Middle aged female sitting up in bed, NAD Eyes: No Scleral Icterus Ears/Nose/Mouth/Throat: Mucous Membranes Moist Respiratory: Symmetrical Chest Expansion and Respiratory Effort, Clear to Auscultation Cardiovascular: NL Sounds; No Murmurs; No JVD, RRR, No Edema Abdominal: NL Sounds; No Tenderness; No Distention Extremities: No Clubbing, Cyanosis Skin: No Nodules or Sclerosis Neurological: Alert and Oriented x 3, - - Weakness of left leg seems functional Result Diagrams: 09/30/18 05:35 09/30/18 05:35 Microbiology and Other Data: Microbiology 09/29/18 05:30 Nasal Screen MRSA (PCR) - Final Nasal Mrsa Not Detected Assess/Plan/Problems-Billing Ms Hamilton is a 53 yo F who has a h/o type II DM (recently diagnosed) who presented to the ER with c/o severe headache and left sided numbness and weakness involving the face/arm/leg. - Patient Problems (1) Left-sided weakness Current Visit: Yes Status: Acute Code(s): R53.1 - WEAKNESS SNOMED Code(s) : 954829230 Comment: Dr. Felix questions if the patient may have had a small internal capsule lacunar infarct. He thought the patient's symptoms were more sensory in nature. Today the patient stresses how weak her left leg is. Will get PT/OT eval. Will ask for Dr. Cardenas to follow up today. Continue ASA and plavix for 21 days then ASA 81mg daily. (2) Type II diabetes mellitus Current Visit: Yes Status: Acute Comment: Sugars are under ok control off her metformin. Will resume metformin 48hr after contrasted scan. (3) DVT prophylaxis Current Visit: Yes Status: Acute Code(s): Z29.9 - ENCOUNTER FOR PROPHYLACTIC MEASURES, UNSPECIFIED SNOMED Code(s): 485304791 Comment: nadia (4) Full code status Current Visit: Yes Status: Acute Code(s): Z78.9 - OTHER SPECIFIED HEALTH STATUS SNOMED Code(s): 491729956
--- NOTE | 2018-09-30 11:33 | PN ---
Subjective Date of Service: 09/30/18 Length of Stay: 1 Days Interval History: Overnight, she notes worsening dizziness which she states was present when she arrived. She notes the dizziness is positional, associated with some nausea, no vomiting. She also notes continued left face/arm/leg numbness and endorses weakness of the LUE, LLE, imbalance. She appears very anxious about the possibility of stroke and is worried about taking medications. She reports some GERD symptoms. Some mild neck pain, no significant low back pain. Objective Active Medications: Acetaminophen (Tylenol Tab*) 650 mg PO Q4H PRN PRN Reason: PAIN - MILD Last Admin: 09/29/18 08:59 Dose: 650 mg Aspirin (Aspirin 81 Mg Chew Tab*) 81 mg PO DAILY [facility] Atorvastatin Calcium (Lipitor*) 40 mg PO 2100 [facility] Last Admin: 09/29/18 20:30 Dose: 40 mg Clopidogrel Bisulfate (Plavix Tab*) 75 mg PO DAILY [facility] Dextrose (Dextrose 50% Vial 50 Ml*) 25 ml IV PUSH .FOR FS < 60 - SS PRN PRN Reason: FS < 60 Enoxaparin Sodium (Lovenox(*)) 40 mg SUBCUT Q24H [facility] Last Admin: 09/29/18 20:30 Dose: 40 mg Famotidine (Pepcid Tab*) 20 mg PO DAILY [facility] Insulin Human Lispro (Humalog*) 0 units SUBCUT [facility]; Protocol Last Admin: 09/30/18 09:32 Dose: Not Given Ketorolac Tromethamine (Toradol Inj*) 15 mg IV PUSH Q6H PRN PRN Reason: PAIN - MODERATE Meclizine HCl (Antivert Tab*) 25 mg PO Q8H PRN PRN Reason: DIZZINESS Ondansetron HCl (Zofran Inj*) 4 mg IV Q6H PRN PRN Reason: NAUSEA Last Admin: 09/30/18 04:54 Dose: 4 mg Vital Signs 09/29/18 09/29/18 09/29/18 12:00 12:01 13:00 Temperature 98.8 F Pulse Rate 87 Respiratory 19 12 18 Rate Blood Pressure 125/81 (mmHg) O2 Sat by Pulse 97 Oximetry 09/29/18 09/29/18 09/29/18 14:00 15:00 16:00 Temperature 99.3 F Pulse Rate 81 94 93 Respiratory 12 14 21 Rate Blood Pressure 125/79 (mmHg) O2 Sat by Pulse 97 98 97 Oximetry 09/29/18 09/29/18 09/29/18 16:01 17:00 18:00 Temperature Pulse Rate 89 84 94 Respiratory 16 16 14 Rate Blood Pressure (mmHg) O2 Sat by Pulse 97 97 97 Oximetry 09/29/18 09/29/18 09/29/18 19:00 19:34 19:51 Temperature 99.2 F Pulse Rate 90 Respiratory 16 Rate Blood Pressure (mmHg) O2 Sat by Pulse 98 Oximetry 09/29/18 09/29/18 09/29/18 20:00 20:01 21:00 Temperature Pulse Rate 100 93 88 Respiratory 14 16 15 Rate Blood Pressure 128/91 (mmHg) O2 Sat by Pulse 99 98 98 Oximetry 09/29/18 09/29/18 09/29/18 22:00 22:01 23:00 Temperature Pulse Rate 86 88 81 Respiratory 28 19 15 Rate Blood Pressure (mmHg) O2 Sat by Pulse 97 97 98 Oximetry 09/30/18 09/30/18 09/30/18 00:00 01:00 02:00 Temperature 100.0 F Pulse Rate 80 76 79 Respiratory 29 13 17 Rate Blood Pressure 103/67 (mmHg) O2 Sat by Pulse 98 99 99 Oximetry 09/30/18 09/30/18 09/30/18 03:00 03:47 04:00 Temperature 98.8 F Pulse Rate 77 84 Respiratory 9 Rate Blood Pressure 123/77 (mmHg) O2 Sat by Pulse 98 98 Oximetry 09/30/18 09/30/18 09/30/18 05:00 06:00 07:00 Temperature Pulse Rate 87 86 96 Respiratory 14 28 Rate Blood Pressure (mmHg) O2 Sat by Pulse 99 99 94 Oximetry 09/30/18 09/30/18 09/30/18 07:50 08:00 09:00 Temperature 99.5 F Pulse Rate 69 74 Respiratory 14 16 Rate Blood Pressure 121/79 (mmHg) O2 Sat by Pulse 99 99 Oximetry 09/30/18 10:00 Temperature Pulse Rate 84 Respiratory 14 Rate Blood Pressure (mmHg) O2 Sat by Pulse 100 Oximetry Intake and Output Last 24 Hours 09/28/18 09/29/18 09/30/18 10/01/18 06:59 06:59 06:59 06:59 Intake Total 1000 350 Output Total 300 Balance 1000 50 Weight 145 lb 11.609 oz Intake: IV Fluids 1000 Oral 350 Output: Urine 300 Other: # Voids 3 Oxygen Devices in Use Now: None Neurology Exam: General: Well nourished, well developed, and in no acute distress, somewhat anxious HEENT: Normocephalic/atraumatic, sclera anicteric, mucous membranes moist Neck: Supple Chest: Clear to auscultation bilaterally Cardiovascular: Regular rate and rhythm without murmurs, rubs, gallops Abdomen: Soft, non-tender/non-distended Extremities: No clubbing, cyanosis, or edema, skin warm and dry Neurological Findings: Awake, alert, and oriented to person, place, and time. Speech: fluent without dysarthria, repetition intact Cranial Nerve: PERRL, EOM intact, VFF to confrontation, no nystagmus, no diplopia, face symmetric bilaterally, notes decreased sensation on the left cheek, hearing intact to finger rub bilaterally, palate elevates symmetrically, tongue midline Motor: She has some weakness proximally and distally in the LUE/LLE with limited effort. Tone is WNL bilaterally. RUE, RLE 5/5 Sensation: Reduced sensation in the LUE, LLE to LT/PP, non-dermatomal Deep Tendon Reflex: 2+ symmetric in the upper/lower extremities, Babinski equivocal Finger to nose, rapid alternating movements intact without tremor, slower on the left side Gait: unable to ambulate due to dizziness Result Diagrams: 09/30/18 05:35 09/30/18 05:35 Microbiology and Other Data: Microbiology 09/29/18 05:30 Nasal Screen MRSA (PCR) - Final Nasal Mrsa Not Detected Assessment/Plan 53 year female with a history of Type II DM presenting with global headache and acute onset of left face/arm/leg weakness and numbness. Symptoms have persisted since her hospitalization and today she endorses more dizziness which she states was there prior. --Stroke w/u done, negative: There is no evidence of restricted diffusion on MRI although a very small lacune in Right IC is possible --Continue ASA/Plavx X 30 days then ASA only --BP control --Tight DM control moving forward --Cholesterol control: statin --PT/OT to mobilize --Expect a good recovery with time --Given ongoing Left arm/leg weakness and numbness, will check MRI C-spine although suspicion for acute issue is low --Dizziness appears to be positional, likely vertigo. Continue to mobilize, can use meclizine if necessary --TUMS for indigestion. On Famotidine
[2018-09-30] MEDS ORDERED: Calcium Carbonate CHEW TAB* 500 MG (TUMS) PO PRN (11:44)
[2018-09-30] MEDS: Clopidogrel TAB* 75 MG PO SCH (11:55)
[2018-09-30] MEDS: Famotidine TAB* 20 MG PO SCH (11:55)
[2018-09-30] MEDS: Aspirin 81 mg CHEW TAB* 81 MG TAB.CHEW PO SCH (11:56)
[2018-09-30] MEDS: Atorvastatin* 40 MG TAB PO SCH (21:28)
[2018-09-30] MEDS: Enoxaparin(*) 40 MG/0.4 ML SYR SUBCUT SCH (21:29)
[2018-09-30] MEDS ORDERED: Docusate CAP* 100 MG PO PRN (22:14)
[2018-09-30] MEDS: Polyethylene Glycol 3350* 17 GM PACKET PO PRN (22:59)
--- NOTE | 2018-10-01 09:09 | PN ---
Subjective Date of Service: 10/01/18 Length of Stay: 2 Days Interval History: No new issues overnight. She states that her dizziness is improved, now 20% of what it was. She is ambulating carefully. Continues to have some left arm and leg weakness but feels it is improved overall. No other problems reported overnight. Overall, she would like to go home today. Prefers outpatient PT to inpatient rehab. [facility]: Impression: --C5-6 a small rigtht paracentral subarticular disc protrusion results in mild impression on the right anterior margin of the thecal sac --Additional uncinate process spurring and facet joint osteroarthritis results in severe right foraminal stenosis Family History: Unchanged from Admission Social History: Unchanged from Admission Past Medical History: Unchanged from Admission Objective Active Medications: Acetaminophen (Tylenol Tab*) 650 mg PO Q4H PRN PRN Reason: PAIN - MILD Last Admin: 09/29/18 08:59 Dose: 650 mg Aspirin (Aspirin 81 Mg Chew Tab*) 81 mg PO DAILY [facility] Last Admin: 09/30/18 11:56 Dose: 81 mg Atorvastatin Calcium (Lipitor*) 40 mg PO 2100 [facility] Last Admin: 09/30/18 21:28 Dose: 40 mg Calcium Carbonate (Tums*) 500 mg PO Q4H PRN PRN Reason: DYSPEPSIA Clopidogrel Bisulfate (Plavix Tab*) 75 mg PO DAILY [facility] Last Admin: 09/30/18 11:55 Dose: 75 mg Dextrose (Dextrose 50% Vial 50 Ml*) 25 ml IV PUSH .FOR FS < 60 - SS PRN PRN Reason: FS < 60 Docusate Sodium (Colace Cap*) 100 mg PO DAILY PRN PRN Reason: CONSTIPATION Last Admin: 09/30/18 23:00 Dose: 100 mg Enoxaparin Sodium (Lovenox(*)) 40 mg SUBCUT Q24H [facility] Last Admin: 09/30/18 21:29 Dose: 40 mg Famotidine (Pepcid Tab*) 20 mg PO DAILY [facility] Last Admin: 09/30/18 11:55 Dose: 20 mg Insulin Human Lispro (Humalog*) 0 units SUBCUT ACHS [facility]; Protocol Last Admin: 09/30/18 21:25 Dose: Not Given Ketorolac Tromethamine (Toradol Inj*) 15 mg IV PUSH Q6H PRN PRN Reason: PAIN - MODERATE Meclizine HCl (Antivert Tab*) 25 mg PO Q8H PRN PRN Reason: DIZZINESS Ondansetron HCl (Zofran Inj*) 4 mg IV Q6H PRN PRN Reason: NAUSEA Last Admin: 09/30/18 04:54 Dose: 4 mg Polyethylene Glycol/Electrolytes (Miralax*) 17 gm PO DAILY PRN PRN Reason: CONSTIPATION Last Admin: 09/30/18 22:59 Dose: 17 gm Vital Signs 09/30/18 09/30/18 09/30/18 10:00 11:00 11:46 Temperature 99.3 F Pulse Rate 84 88 Respiratory 14 13 Rate Blood Pressure (mmHg) O2 Sat by Pulse 100 98 Oximetry 09/30/18 09/30/18 09/30/18 12:00 12:01 13:29 Temperature 97.8 F 97.9 F Pulse Rate 95 84 79 Respiratory 16 11 16 Rate Blood Pressure 122/72 122/87 125/83 (mmHg) O2 Sat by Pulse 96 100 98 Oximetry 09/30/18 09/30/18 09/30/18 15:09 19:39 20:00 Temperature 97.9 F 98.4 F Pulse Rate 88 80 Respiratory 20 16 16 Rate Blood Pressure 109/73 107/64 (mmHg) O2 Sat by Pulse 98 100 Oximetry 09/30/18 10/01/18 23:22 08:18 Temperature 98.5 F 97.5 F Pulse Rate 72 85 Respiratory 18 16 Rate Blood Pressure 122/83 110/80 (mmHg) O2 Sat by Pulse 100 98 Oximetry Intake and Output Last 24 Hours 09/29/18 09/30/18 10/01/18 10/02/18 06:59 06:59 06:59 06:59 Intake Total 1000 350 360 Output Total 300 0 Balance 1000 50 360 Weight 145 lb 11.609 oz 145 lb 11.609 oz Intake: IV Fluids 1000 Oral 350 360 Output: Urine 300 0 Other: Estimated Void Medium # Voids 3 1 Oxygen Devices in Use Now: None Neurology Exam: General: Well nourished, well developed, and in no acute distress HEENT: Normocephalic/atraumatic, sclera anicteric, mucous membranes moist Neck: Supple Chest: Clear to auscultation bilaterally Cardiovascular: Regular rate and rhythm without murmurs, rubs, gallops Abdomen: Soft, non-tender/non-distended Extremities: No clubbing, cyanosis, or edema Neurological Findings: Awake, alert, and oriented to person, place, and time. Speech: fluent without dysarthria, repetition intact Cranial Nerve: PERRL, EOM intact, VFF, no nystagmus, face symmetric bilaterally , diminished LT/PP in the left cheek/jaw area, hearing intact to finger rub bilaterally, palate elevates symmetrically, tongue midline Motor: Right side: 5/5 throughout with normal tone. Left upper and lower extremities: weakness proximally and distally 4/5 with giveway, tone is normal. Some drift in the upper and lower extremity. Sensation: Diminished to LT/PP in the left upper/lower extremities, improving Deep Tendon Reflex: 2+ symmetric in the upper/lower extremities Finger to nose, rapid alternating movements intact without tremor Result Diagrams: 09/30/18 05:35 09/30/18 05:35 Microbiology and Other Data: Microbiology 09/29/18 05:30 Nasal Screen MRSA (PCR) - Final Nasal Mrsa Not Detected Assessment/Plan 53 year female with a history of Type II DM presenting with global headache and acute onset of left face/arm/leg weakness and numbness. Symptoms have persisted since her hospitalization, waxing and waning but since transfer to the floor, she is improved. Dizziness has improved. She has been walking around the room. Continued left sided weakness . --Stroke workup complete: There is no evidence of restricted diffusion on MRI although a very small lacune in Right IC is possible --Continue ASA/Plavx X 30 days then ASA only --BP control --Tight DM control moving forward --Cholesterol control: statin, goal LDL < 70 --PT/OT to mobilize --Expect a good recovery with time --Likely home today with o/p PT/OT --I would like to see her back in 6-8 weeks in my clinic for followup MRI C-spine shows degenerative changes but no central canal disease that would explain her symptoms. Will continue to follow as an outpatient. Will sign off for now, I remain available for any new issues or concerns. Thank you for the opportunity to participate in her care.
[2018-10-01] MEDS: Polyethylene Glycol 3350* 17 GM PACKET PO PRN (09:44)
[2018-10-01] MEDS: Famotidine TAB* 20 MG PO SCH (09:45)
[2018-10-01] MEDS: Aspirin 81 mg CHEW TAB* 81 MG TAB.CHEW PO SCH (09:45)
[2018-10-01] MEDS: Clopidogrel TAB* 75 MG PO SCH (09:45)
[2018-10-01] MEDS: Insulin LISPRO* 1 UNITS UNIT SUBCUT SCH ×2 (09:47→12:53)
[2018-10-01 14:29] VITALS: BP 121/79
--- NOTE | 2018-10-01 14:35 | DS ---
CONTINUATION ADDENDUM NOW INCLUDED ON THIS REPORT CC: Dr. Dan * DISCHARGE SUMMARY: DATE OF ADMISSION: 09/29/18 DATE OF DISCHARGE: 10/01/18 PRIMARY CARE PROVIDER: To be established with Marguerite Dan DO. PRINCIPAL DIAGNOSIS: Possible internal capsule lacunar infarct. SECONDARY DIAGNOSIS: Type 2 diabetes. DISCHARGE MEDICATIONS: 1. Metformin 500 mg p.o. b.i.d. 2. Plavix 75 mg p.o. daily (new). 3. Lipitor 40 mg p.o. daily (new). 4. Aspirin 81 mg p.o. daily (new). HOSPITAL COURSE: Ms. Hamilton is a 53-year-old female who presented to the emergency room on 09/28/18 with complaints of CONTINUATION ADDENDUM: HOSPITAL COURSE: Ms. Hamilton is a 53-year-old female who presented to the emergency room on 09/28/18 with complaints of left-sided weakness. The patient also reported numbness in the jaw, face, tongue, arm and leg. The patient was admitted to be evaluated for possible CVA. The patient underwent MRI of the brain which did not reveal any evidence of an acute stroke. This was after CT of the brain was negative for acute intracranial abnormality and her CTA of the head and neck was negative for significant stenosis. The patient was seen in consultation by Dr. Felix, who felt the patient possibly had a small internal capsule lacunar infarct. It was recommended that she should be started on aspirin and Plavix for 21 days followed by aspirin alone. The patient was then seen in consultation by Dr. Cardenas. He recommended checking a C-spine MRI due to ongoing left arm and leg weakness. The MRI of the cervical spine revealed a small right paracentral to right subarticular disk protrusion at C5-C6 resulting in mild impression on the right anterior margin of the thecal sac. Additionally, uncinate process spurring and facet joint osteoarthritis resulting in severe right foraminal stenosis was noted. This is on the right side and her symptoms are on the left, therefore the MRI of the cervical spine does not help identify the cause of her ongoing weakness as of yesterday. On , the patient was feeling much improved. The day prior, she stated that she had severe dizziness. This has now resolved. She feels that her strength is much improved. She has been ambulating around the floor on her own. The day prior to discharge, she felt that she might need to go to subacute rehab, however, at this point, she feels stable to be discharged home. PHYSICAL EXAMINATION: On the day of discharge, the patient is awake, alert, and oriented, sitting up on the edge of bed, in no acute distress. Cardiac exam revealed a normal S1, S2 with a regular rate and rhythm. Her lung are clear. Her abdomen is soft, nontender, nondistended. Her neurologic exam is normal at this point. FOLLOWUP CONCERNS: The patient is being discharged home today, 10/01/18. Activity level is as tolerated. Diet is diabetic. CONDITION ON DISCHARGE: Stable. The patient is to follow up with Marguerite Dan DO on 10/30/18 at 9 a.m. She again is to be on aspirin and Plavix x19 more days and aspirin 81 mg daily. TIME SPENT: Thirty five minutes was spent discharging this patient. [id number]/CPS #: [id number] Sindhu- [id number]/CPS #: [id number] AMITA
--- NOTE | 2018-10-01 14:44 | DS ---
CC: Dr. Dan ADDENDUM: DISCHARGE SUMMER: HOSPITAL COURSE: Ms. Hamilton is a 53-year-old female who presented to the emergency room on 09/28/18 with complaints of left-sided weakness. The patient also reported numbness in the jaw, face, tongue, arm and leg. The patient was admitted to be evaluated for possible CVA. The patient underwent MRI of the brain which did not reveal any evidence of an acute stroke. This was after CT of the brain was negative for acute intracranial abnormality and her CTA of the head and neck was negative for significant stenosis. The patient was seen in consultation by Dr. Felix, who felt the patient possibly had a small internal capsule lacunar infarct. It was recommended that she should be started on aspirin and Plavix for 21 days followed by aspirin alone. The patient was then seen in consultation by Dr. Cardenas. He recommended checking a C-spine MRI due to ongoing left arm and leg weakness. The MRI of the cervical spine revealed a small right paracentral to right subarticular disk protrusion at C5-C6 resulting in mild impression on the right anterior margin of the thecal sac. Additionally, uncinate process spurring and facet joint osteoarthritis resulting in severe right foraminal stenosis was noted. This is on the right side and her symptoms are on the left, therefore the MRI of the cervical spine does not help identify the cause of her ongoing weakness as of yesterday. On , the patient was feeling much improved. The day prior, she stated that she had severe dizziness. This has now resolved. She feels that her strength is much improved. She has been ambulating around the floor on her own. The day prior to discharge, she felt that she might need to go to subacute rehab, however, at this point, she feels stable to be discharged home. PHYSICAL EXAMINATION: On the day of discharge, the patient is awake, alert, and oriented, sitting up on the edge of bed, in no acute distress. Cardiac exam revealed a normal S1, S2 with a regular rate and rhythm. Her lung are clear. Her abdomen is soft, nontender, nondistended. Her neurologic exam is normal at this point. FOLLOWUP CONCERNS: The patient is being discharged home today, 10/01/18. Activity level is as tolerated. Diet is diabetic. CONDITION ON DISCHARGE: Stable. The patient is to follow up with Marguerite Dan DO on 10/30/18 at 9 a.m. She again is to be on aspirin and Plavix x19 more days and aspirin 81 mg daily. TIME SPENT: Thirty five minutes was spent discharging this patient. [id number]/CPS #: [id number] AMITA
== END 2018-10-01 15:45 | disposition home or self-care (01) | DRG 65 ==
LOC: ED 22:51 → ICU 09-29 04:19 → MEDTELE 09-30 13:28
PROVIDERS: ADMIT Internal Medicine; ATTEND Hospitalist
DX: I63.81 Other cerebral infarction due to occlusion or stenosis of small artery (principal); G81.94 Hemiplegia, unspecified affecting left nondominant side; E11.9 Type 2 diabetes mellitus without complications; Z79.84 Long term (current) use of oral hypoglycemic drugs; Z88.0 Allergy status to penicillin; Z88.2 Allergy status to sulfonamides
CPT/HCPCS: 36415; 70450; 70496; 70498; 70551; 72141; 80048; 80053; 80061; 81003; 83036; 83605; 84484; 85025; 85610; 85730; 87641; 93005; 93306; 99285; A9270-GY; G8987-GO-CI; G8988-GO-CH; J1650; J1885; J2270; J2405; J2765; Q9967